=== PATIENT | male | born 1995 | race Two or more races ===

== ENCOUNTER 2024-04-14 21:25 | Emergency (ER) | payer SELFPAY ==
[~2024-04-14] VITALS: Ht 172.7 cm; Wt 125.7 kg
[2024-04-14 21:37] VITALS: BP 127/91; PULSE 67; RESP 14; O2SAT 94
== END 2024-04-14 21:50 | disposition left against medical advice (07) ==
LOC: ER 21:25
DX: T78.49XA Other allergy, initial encounter (principal); Z53.21 Procedure and treatment not carried out due to patient leaving prior to being seen by health care provider; X58.XXXA Exposure to other specified factors, initial encounter